=== PATIENT | male | born 1950 | race Caucasian/White ===

== ENCOUNTER 2023-03-02 08:52 | Emergency (ER) | payer OTHER ==
[2023-03-02 09:52] LABS: Bilirubin Neg (Negative); Blood, Urine 250 (Negative); Clarity Cloudy (Clear); Glucose, Urine (Dipstick) Normal (Negative); Ketone, Urine Negative (Negative); Leukocyte 25 (Negative); Nitrite Negative (Negative); Protein, Urine (Dipstick) 30 mg/dl (Neg-Trace); Specific Gravity, Urine 1.025 (1.005-1.030)
[2023-03-02 10:07] LABS: CAUTI Indications for Culture Dysuria,urgency,freq; RBC/HPF 21-50 HPF (0-3); WBC/HPF 0-3 HPF (0-3)
[2023-03-02 10:08] LABS: Bacteria/HPF Rare-Few HPF (None Seen); Squamous Epithelial 0-3 HPF (0-3)
[2023-03-02 10:09] LABS: Mucous/LPF 2+ LPF (<2+); Urine Culture Reflex No No
== END 2023-03-02 13:06 | disposition home or self-care (01) ==
LOC: CSHERS 08:52
DX: T83.091A Other mechanical complication of indwelling urethral catheter, initial encounter (principal); I10 Essential (primary) hypertension
CPT/HCPCS: 51702; 81001; 99283

== ENCOUNTER 2023-03-10 03:52 | Emergency (ER) | payer OTHER ==
[2023-03-10 05:09] LABS: Bilirubin Neg (Negative); Blood, Urine 250 (Negative); Clarity Cloudy (Clear); Glucose, Urine (Dipstick) Normal (Negative); Ketone, Urine Negative (Negative); Leukocyte 100 (Negative); Nitrite Negative (Negative); Protein, Urine (Dipstick) 30 mg/dl (Neg-Trace); Specific Gravity, Urine 1.025 (1.005-1.030)
[2023-03-10 05:17] LABS: Bacteria/HPF 2+ HPF (None Seen); CAUTI Indications for Culture Dysuria,urgency,freq; RBC/HPF 21-50 HPF (0-3); WBC/HPF Greater Than 50 HPF (0-3)
[2023-03-10 05:19] LABS: Urine Culture Reflex Yes Yes
[2023-03-10] MEDS ORDERED: Lidocaine 2% 6 ML (Jelly) SYR TOP SCH (06:00)
[2023-03-10] MEDS ORDERED: Cephalexin 250 MG CAP ONE (07:11)
== END 2023-03-10 07:40 | disposition home or self-care (01) ==
LOC: CSHERS 03:52
DX: T83.098A Other mechanical complication of other urinary catheter, initial encounter (principal); N30.01 Acute cystitis with hematuria; I10 Essential (primary) hypertension
CPT/HCPCS: 81001; 87086; 99283

== ENCOUNTER 2023-03-14 23:32 | Inpatient (IN) | payer OTHER ==
[2023-03-15] MEDS ORDERED: Morphine 4 MG/ML VIAL ONE (00:22)
[2023-03-15] MEDS ORDERED: Ketorolac Tromethamine 30 MG/ML VIAL ONE (00:23)
[2023-03-15] MEDS ORDERED: Ondansetron PF 4 MG/2 ML Vial ONE (00:23)
[2023-03-15 00:36] LABS: #Basophils 0.1 10x3/uL (0.0-0.2); #Eosinphils 0.1 10x3/uL (0.0-0.5); #Monocytes 1.9 10x3/uL (0.0-1.1); #Neutrophils 14.6 10x3/uL (1.5-8.4); %Basophils 0.6 % (0.0-2.0); %Eosinophils 0.4 % (0.0-6.0); %Lymphocytes 6.2 % (18.0-47.0); %Monocytes 10.4 % (0.0-10.0); %Neutrophils 82.1 % (40.0-75.0); Hematocrit 45.5 % (38.8-50.0); Hemoglobin 15.8 g/dL (13.5-17.5); Mean Corpuscular HGB CONC 34.7 g/dL (32.0-36.0); Mean Corpuscular Hemoglobin 32.8 pg (27.0-33.0); Mean Corpuscular Volume 94.4 fl (81.2-95.1); Mean Platelet Volume 8.9 fl (7.4-10.4); Platelet Count 310 10x3/uL (150-450); RBC Distribution Width 11.8 % (11.5-14.5); Red Blood Cell (RBC) Count 4.82 10x6/uL (4.32-5.72); White Blood Cell (WBC) Count 17.8 10x3/uL (3.5-10.5)
[2023-03-15 00:58] LABS: Bilirubin Neg (Negative); Blood, Urine 250 (Negative); Clarity Cloudy (Clear); Glucose, Urine (Dipstick) Normal (Negative); Ketone, Urine 15 mg/dL (Negative); Leukocyte 500 (Negative); Nitrite Negative (Negative); Protein, Urine (Dipstick) 100 mg/dl (Neg-Trace); Specific Gravity, Urine 1.025 (1.005-1.030); Urobilinogen Normal mg/dL (Less than 2)
[2023-03-15 01:03] LABS: ALT (SGPT) 24 U/L (8-55); AST (SGOT) 19 U/L (5-34); Albumin 4.5 g/dL (3.4-4.8); Alkaline Phosphatase 74 U/L (40-110); Anion Gap 18 mmol/L (10-20); BUN (Urea Nitrogen) 17 mg/dL (8.4-25.7); Bilirubin, Total 1.5 mg/dL (0.2-1.2); Calc. Creatinine Clearance 0 mL/min (70-130); Calcium 9.3 mg/dL (7.8-10.44); Carbon Dioxide 19 mmol/L (23-31); Chloride 105 mmol/L (98-107); Estimated GFR 42; Globulin 2.7 g/dL (2.4-3.5); Glucose 151 mg/dL (80-115); Lipase 28 U/L (8-78); Potassium 4.4 mmol/L (3.5-5.1); Protein, Total 7.2 g/dL (5.8-8.1); Sodium 138 mmol/L (136-145)
[2023-03-15 01:09] LABS: Troponin I Less than 0.010 ng/mL (< 0.028)
[2023-03-15 01:14] LABS: Bacteria/HPF 2+ HPF (None Seen); CAUTI Indications for Culture Alt mental st,lethar; RBC/HPF 21-50 HPF (0-3); WBC/HPF Greater Than 50 HPF (0-3)
[2023-03-15 01:16] LABS: Urine Culture Reflex Yes Yes
[2023-03-15 01:16] LABS: D-Dimer Test 11.1 mg/L FEU (0.19-0.50); INR-International Normal Ratio 1.1; PTT 29.8 sec (22.0-33.0); Prothrombin Time 11.4 sec (9.5-12.1)
[2023-03-15 01:17] LABS: SARS-CoV-2 NAA Rapid Test Not Detected (NotDetected)
[2023-03-15] MEDS ORDERED: cefTRIAXone (ROCEPHIN) 1 GM VIAL ONE (02:43)
[2023-03-15 05:08] VITALS: BMI 32.5
[2023-03-15] MEDS ORDERED: Iopamidol 370 76% 100 ML VIAL ONE (09:14)
[2023-03-15] MEDS: Terazosin HCl 1 MG CAP PO SCH (22:02)
[2023-03-16] MEDS: Acetaminophen 325 MG TAB PO PRN ×2 (03:00→14:23)
[2023-03-16 05:05] LABS: #Basophils 0.1 10x3/uL (0.0-0.2); #Eosinphils 0.2 10x3/uL (0.0-0.5); #Monocytes 2.1 10x3/uL (0.0-1.1); %Basophils 0.5 % (0.0-2.0); %Lymphocytes 11.4 % (18.0-47.0); %Monocytes 13.1 % (0.0-10.0); %Neutrophils 73.6 % (40.0-75.0); Hematocrit 42.3 % (38.8-50.0); Hemoglobin 14.1 g/dL (13.5-17.5); Mean Corpuscular HGB CONC 33.3 g/dL (32.0-36.0); Mean Corpuscular Hemoglobin 32.3 pg (27.0-33.0); Platelet Count 269 10x3/uL (150-450); RBC Distribution Width 11.9 % (11.5-14.5); Red Blood Cell (RBC) Count 4.36 10x6/uL (4.32-5.72); White Blood Cell (WBC) Count 16.2 10x3/uL (3.5-10.5)
[2023-03-16 05:09] LABS: INR-International Normal Ratio 1.1; PTT 38.9 sec (22.0-33.0); Prothrombin Time 11.7 sec (9.5-12.1)
[2023-03-16 05:18] LABS: Anion Gap 14 mmol/L (10-20); BUN (Urea Nitrogen) 20 mg/dL (8.4-25.7); Calc. Creatinine Clearance 70 mL/min (70-130); Calcium 9.6 mg/dL (7.8-10.44); Carbon Dioxide 21 mmol/L (23-31); Chloride 105 mmol/L (98-107); Estimated GFR 55; Glucose 90 mg/dL (80-115); Magnesium 2.4 mg/dL (1.6-2.6); Potassium 4.1 mmol/L (3.5-5.1); Sodium 136 mmol/L (136-145)
[2023-03-16] MEDS ORDERED: cefTRIAXone\\ROCEPHIN 1 GM in Sodium Chloride 0.9% 100 ML IVPB SCH (06:00)
[2023-03-16] MEDS ORDERED: cefTRIAXone Sodium 1,000 MG in Syringe 0 ML IVPB SCH (06:00)
[2023-03-16] MEDS ORDERED: Dutasteride 0.5 MG CAP PO SCH (13:00)
[2023-03-16] MEDS: Lactated Ringer's 1,000 ML IV SCH (13:22)
[2023-03-16] MEDS: Terazosin HCl 1 MG CAP PO SCH (22:11)
[2023-03-17 04:17] LABS: #Basophils 0.1 10x3/uL (0.0-0.2); #Eosinphils 0.3 10x3/uL (0.0-0.5); #Monocytes 1.4 10x3/uL (0.0-1.1); #Neutrophils 8.9 10x3/uL (1.5-8.4); %Basophils 0.7 % (0.0-2.0); %Eosinophils 2.8 % (0.0-6.0); %Lymphocytes 12.4 % (18.0-47.0); %Monocytes 11.3 % (0.0-10.0); %Neutrophils 72.4 % (40.0-75.0); Hematocrit 40.9 % (38.8-50.0); Hemoglobin 13.9 g/dL (13.5-17.5); Mean Corpuscular Hemoglobin 32.7 pg (27.0-33.0); Mean Corpuscular Volume 96.2 fl (81.2-95.1); Mean Platelet Volume 9.4 fl (7.4-10.4); Platelet Count 296 10x3/uL (150-450); RBC Distribution Width 11.5 % (11.5-14.5); Red Blood Cell (RBC) Count 4.25 10x6/uL (4.32-5.72); White Blood Cell (WBC) Count 12.3 10x3/uL (3.5-10.5)
[2023-03-17 04:37] LABS: Anion Gap 15 mmol/L (10-20); BUN (Urea Nitrogen) 21 mg/dL (8.4-25.7); Calc. Creatinine Clearance 86 mL/min (70-130); Calcium 9.2 mg/dL (7.8-10.44); Carbon Dioxide 21 mmol/L (23-31); Chloride 105 mmol/L (98-107); Estimated GFR 70; Glucose 78 mg/dL (80-115); Potassium 3.9 mmol/L (3.5-5.1); Sodium 137 mmol/L (136-145)
[2023-03-17] MEDS ORDERED: Fluconazole 100 MG TAB PO SCH (09:00)
[2023-03-17] MEDS ORDERED: Dutasteride 0.5 MG CAP PO SCH (09:00)
[2023-03-17 12:27] VITALS: BP 144/73; TEMP 98.6
[2023-03-17] MEDS: Lactated Ringer's 1,000 ML IV SCH (12:40)
== END 2023-03-17 15:38 | disposition home or self-care (01) | DRG 175 ==
LOC: CSHERS 23:32 → CSHERHOLD 03-15 04:36 → CSHTELE 03-15 17:16
PROVIDERS: ADMIT Family Medicine; ATTEND Family Medicine
DX: I26.99 Other pulmonary embolism without acute cor pulmonale (principal); J96.01 Acute respiratory failure with hypoxia; N39.0 Urinary tract infection, site not specified; T83.511A Infection and inflammatory reaction due to indwelling urethral catheter, initial encounter; N17.9 Acute kidney failure, unspecified; N40.0 Benign prostatic hyperplasia without lower urinary tract symptoms; I10 Essential (primary) hypertension; Z88.2 Allergy status to sulfonamides; Z79.899 Other long term (current) drug therapy; Z90.89 Acquired absence of other organs; Z82.49 Family history of ischemic heart disease and other diseases of the circulatory system; Z20.822 Contact with and (suspected) exposure to COVID-19; E74.39 Other disorders of intestinal carbohydrate absorption
CPT/HCPCS: 36415; 71045; 71275; 80048; 80053; 81001; 83690; 83735; 83880; 84484; 85025; 85379; 85610; 85730; 87040; 87086; 93005; 93306; 93970; 94760; 94762; 94799; J0696; J1650; J1885; J2270; J2405; J3490; J7120; Q9967

== ENCOUNTER 2023-03-18 19:25 | Emergency (ER) | payer OTHER ==
[2023-03-18] MEDS ORDERED: Lidocaine 2% 6 ML (Jelly) SYR TOP SCH (21:15)
[2023-03-18 21:17] LABS: #Basophils 0.1 10x3/uL (0.0-0.2); #Eosinphils 0.4 10x3/uL (0.0-0.5); #Monocytes 1.3 10x3/uL (0.0-1.1); #Neutrophils 6.5 10x3/uL (1.5-8.4); %Eosinophils 4.2 % (0.0-6.0); %Lymphocytes 16.7 % (18.0-47.0); %Monocytes 13.1 % (0.0-10.0); %Neutrophils 64.8 % (40.0-75.0); Hematocrit 42.6 % (38.8-50.0); Hemoglobin 14.8 g/dL (13.5-17.5); Mean Corpuscular HGB CONC 34.7 g/dL (32.0-36.0); Mean Corpuscular Hemoglobin 32.5 pg (27.0-33.0); Mean Corpuscular Volume 93.4 fl (81.2-95.1); Platelet Count 352 10x3/uL (150-450); RBC Distribution Width 11.5 % (11.5-14.5); Red Blood Cell (RBC) Count 4.56 10x6/uL (4.32-5.72)
[2023-03-18 21:28] LABS: ALT (SGPT) 32 U/L (8-55); AST (SGOT) 32 U/L (5-34); Albumin 4.3 g/dL (3.4-4.8); Alkaline Phosphatase 70 U/L (40-110); Anion Gap 17 mmol/L (10-20); BUN (Urea Nitrogen) 19 mg/dL (8.4-25.7); Calc. Creatinine Clearance 0 mL/min (70-130); Calcium 9.2 mg/dL (7.8-10.44); Carbon Dioxide 22 mmol/L (23-31); Chloride 104 mmol/L (98-107); Estimated GFR 47; Globulin 2.6 g/dL (2.4-3.5); Glucose 117 mg/dL (80-115); Potassium 4.4 mmol/L (3.5-5.1); Protein, Total 6.9 g/dL (5.8-8.1); Sodium 139 mmol/L (136-145)
[2023-03-18 22:49] LABS: Bilirubin Neg (Negative); Blood, Urine 50 (Negative); Clarity Clear (Clear); Glucose, Urine (Dipstick) Normal (Negative); Ketone, Urine Negative (Negative); Leukocyte 25 (Negative); Nitrite Negative (Negative); Protein, Urine (Dipstick) 15 mg/dl (Neg-Trace); Specific Gravity, Urine 1.015 (1.005-1.030)
[2023-03-18] MEDS ORDERED: Cephalexin 250 MG CAP ONE (23:19)
[2023-03-18 23:21] LABS: Bacteria/HPF 1+ HPF (None Seen); CAUTI Indications for Culture Dysuria,urgency,freq; Squamous Epithelial 0-3 HPF (0-3)
[2023-03-18 23:22] LABS: Urine Culture Reflex No No
== END 2023-03-18 23:46 | disposition home or self-care (01) ==
LOC: CSHERS 19:25
DX: N13.9 Obstructive and reflux uropathy, unspecified (principal); N30.01 Acute cystitis with hematuria; I10 Essential (primary) hypertension
CPT/HCPCS: 36415; 51702; 80053; 81001; 85025; 87086

== ENCOUNTER 2023-05-12 03:19 | Emergency (ER) | payer OTHER ==
[2023-05-12] MEDS ORDERED: Lidocaine 2% 6 ML (Jelly) SYR TOP SCH (04:15)
[2023-05-12 05:10] LABS: Bilirubin Neg (Negative); Blood, Urine 25 (Negative); Glucose, Urine (Dipstick) Normal (Negative); Ketone, Urine Negative (Negative); Leukocyte 25 (Negative); Nitrite Negative (Negative); Protein, Urine (Dipstick) Negative (Neg-Trace); Urobilinogen Normal mg/dL (Less than 2)
[2023-05-12 05:20] LABS: Clarity Clear (Clear)
[2023-05-12 05:22] LABS: CAUTI Indications for Culture Dysuria,urgency,freq; RBC/HPF 0-3 HPF (0-3); WBC/HPF 0-3 HPF (0-3)
[2023-05-12 05:23] LABS: Bacteria/HPF Rare-Few HPF (None Seen); Squamous Epithelial None Seen HPF (0-3)
[2023-05-12 05:24] LABS: Urine Culture Reflex No No
== END 2023-05-12 04:45 | disposition home or self-care (01) ==
LOC: CSHERS 03:19
DX: R33.9 Retention of urine, unspecified (principal); I10 Essential (primary) hypertension
CPT/HCPCS: 51702; 81001

== ENCOUNTER 2023-07-07 02:05 | Emergency (ER) | payer OTHER ==
[2023-07-07 03:17] LABS: Bilirubin Neg (Negative); Blood, Urine 250 (Negative); Glucose, Urine (Dipstick) Normal (Negative); Ketone, Urine Negative (Negative); Leukocyte 500 (Negative); Nitrite Negative (Negative); Protein, Urine (Dipstick) 30 mg/dl (Neg-Trace); Specific Gravity, Urine 1.005 (1.005-1.030); Urobilinogen Normal mg/dL (Less than 2)
[2023-07-07 03:20] LABS: Clarity Cloudy (Clear)
[2023-07-07 03:47] LABS: Bacteria/HPF 4+ HPF (None Seen); CAUTI Indications for Culture Dysuria,urgency,freq; RBC/HPF 21-50 HPF (0-3); Squamous Epithelial None Seen HPF (0-3); Triple Phosphate Crystal 1+ HPF (None Seen); WBC/HPF Greater than 50 HPF (0-3)
[2023-07-07 03:49] LABS: Urine Culture Reflex Yes Yes
== END 2023-07-07 04:00 | disposition home or self-care (01) ==
LOC: CSHERS 02:05
DX: T83.091A Other mechanical complication of indwelling urethral catheter, initial encounter (principal); N39.0 Urinary tract infection, site not specified; I10 Essential (primary) hypertension; Z79.01 Long term (current) use of anticoagulants
CPT/HCPCS: 81001; 87077; 87086; 87186; 99283

== ENCOUNTER 2023-07-16 00:11 | Emergency (ER) | payer OTHER ==
[2023-07-16 02:13] LABS: Bilirubin Neg (Negative); Blood, Urine 250 (Negative); Clarity Clear (Clear); Glucose, Urine (Dipstick) Normal (Negative); Ketone, Urine Negative (Negative); Leukocyte 500 (Negative); Nitrite Negative (Negative); Protein, Urine (Dipstick) 30 mg/dl (Neg-Trace); Urobilinogen Normal mg/dL (Less than 2)
[2023-07-16 02:26] LABS: CAUTI Indications for Culture Pelvic or flank pain; Squamous Epithelial 0-3 HPF (0-3); Triple Phosphate Crystal Rare HPF (None Seen); WBC/HPF Greater than 50 HPF (0-3)
[2023-07-16 02:27] LABS: Urine Culture Reflex Yes Yes
== END 2023-07-16 03:33 | disposition home or self-care (01) ==
LOC: CSHERS 00:11
DX: N39.0 Urinary tract infection, site not specified (principal); I10 Essential (primary) hypertension
CPT/HCPCS: 51702; 81001; 87086

== ENCOUNTER 2023-07-16 07:22 | Emergency (ER) | payer OTHER | END 2023-07-16 08:27 | disposition home or self-care (01) | LOC: CSHERS 07:22 | DX: T83.091A Other mechanical complication of indwelling urethral catheter, initial encounter (principal); I10 Essential (primary) hypertension; Y84.6 Urinary catheterization as the cause of abnormal reaction of the patient, or of later complication, without mention of misadventure at the time of the procedure | CPT/HCPCS: 51702 ==

== ENCOUNTER 2023-08-11 20:09 | Emergency (ER) | payer OTHER ==
[2023-08-11 23:06] LABS: Bilirubin Neg (Negative); Blood, Urine 250 (Negative); Clarity Slightly Cloudy (Clear); Glucose, Urine (Dipstick) Normal (Negative); Ketone, Urine Negative (Negative); Leukocyte 500 (Negative); Nitrite Negative (Negative); Protein, Urine (Dipstick) 30 mg/dl (Neg-Trace); Urobilinogen Normal mg/dL (Less than 2)
[2023-08-11 23:42] LABS: CAUTI Indications for Culture Pelvic or flank pain; WBC/HPF 21-50 HPF (0-3)
[2023-08-11 23:43] LABS: Bacteria/HPF 1+ HPF (None Seen); Squamous Epithelial 0-3 HPF (0-3); Urine Culture Reflex Yes Yes
== END 2023-08-12 00:54 | disposition home or self-care (01) ==
LOC: CSHERS 20:09
DX: T83.018A Breakdown (mechanical) of other urinary catheter, initial encounter (principal)
CPT/HCPCS: 81001; 87077; 87086; 87186; 99283

== ENCOUNTER 2023-08-17 18:57 | Emergency (ER) | payer OTHER ==
[2023-08-17 20:37] LABS: Bilirubin Neg (Negative); Blood, Urine 250 (Negative); Clarity Cloudy (Clear); Glucose, Urine (Dipstick) Normal (Negative); Ketone, Urine 5 mg/dL (Negative); Leukocyte 500 (Negative); Nitrite Positive (Negative); Protein, Urine (Dipstick) 100 mg/dl (Neg-Trace); Specific Gravity, Urine 1.015 (1.005-1.030); pH, Urine 6.5 (5.0-9.0)
[2023-08-17 20:45] LABS: Bacteria/HPF 4+ HPF (None Seen); CAUTI Indications for Culture Dysuria,urgency,freq; Mucous/LPF 1+ LPF (<2+); Squamous Epithelial 0-3 HPF (0-3); Transitional Epithelial 0-3 HPF (None Seen); Urine Culture Reflex Yes Yes; WBC/HPF Greater than 50 HPF (0-3); White Blood Cell Cast 0-3 LPF (None Seen)
== END 2023-08-17 21:29 | disposition home or self-care (01) ==
LOC: CSHERS 18:57
DX: T83.098A Other mechanical complication of other urinary catheter, initial encounter (principal); N39.0 Urinary tract infection, site not specified
CPT/HCPCS: 51702; 81001; 87077; 87086; 87186; 99283